=== PATIENT | female | born 1975 | race Caucasian/White ===

== ENCOUNTER 2019-08-29 08:20 | Emergency (ER) | payer OTHER ==
[2019-08-29 08:30] VITALS: BP 165/95; PULSE 72; TEMP 98.7; BMI 25.6
--- NOTE | 2019-08-29 08:59 | PDOC ---
History of Present Illness - General Chief Complaint: Blood Pressure Problem Stated Complaint: HYPERTENSION Time Seen by Provider: 08/29/19 08:36 History Source: Patient Past History - Past Medical History Allergies/Adverse Reactions: Allergies Allergy/AdvReac Type Severity Reaction Status Date / Time No Known Allergies Allergy Verified 07/14/12 09:07 Home Medications: Ambulatory Orders Aspirin 81 mg PO DAILY 08/29/19 Folic Acid 1 mg PO DAILY 08/29/19 Leflunomide 0 mg PO DAILY 08/29/19 Losartan Potassium [Cozaar -] 50 mg PO DAILY 08/29/19 Methotrexate [Mexate -] 15 mg PO Q7D 08/29/19 Omeprazole 40 mg PO DAILY 08/29/19 Cancer: Yes COPD: No HTN: Yes Other medical history: LUPUS, HIV - Surgical History GI Surgery: No - Immunization History Immunization Up to Date: Yes - Psycho Social/Smoking Cessation Hx Smoking Status: No Smoking History: Never smoked Have you smoked in the past 12 months: No Number of Cigarettes Smoked Daily: 0 Information on smoking cessation initiated: No Hx Alcohol Use: No Drug/Substance Use Hx: No Review of Systems - Review of Systems HEENTM: No: Blurred Vision Respiratory: No: Shortness of Breath Cardiac (ROS): No: Chest Pain, Lightheadedness, Palpitations Neurological: No: Headache, Numbness, Tingling, Weakness, Dizziness *Physical Exam - Vital Signs Last Vital Signs Temp Pulse Resp BP Pulse Ox 98.7 F 72 16 165/95 96 08/29/19 08:26 08/29/19 08:26 08/29/19 08:26 08/29/19 08:26 08/29/19 08:26 - Physical Exam General Appearance: Yes: Appropriately Dressed. No: Apparent Distress HEENT: positive: Normal Voice Neck: positive: Supple Respiratory/Chest: positive: Lungs Clear, Normal Breath Sounds. negative: Respiratory Distress Cardiovascular: positive: Regular Rate, S1, S2 Integumentary: positive: Dry, Warm Neurologic: positive: heavy cleaner II-XII NML intact, Fully Oriented, Alert, Normal Mood/ Affect, Motor Strength 5/5 Medical Decision Making - Medical Decision Making 08/29/19 08:55 44-year-old female, history of HIV and hypertension here over concern that her blood pressure was elevated at home. States this a.m. her blood pressure was 175/100. Patient states she recently was started on losartan. Was on lisinopril before that but her blood pressure was still elevated. Patient denies any symptoms at this time see exam Elevated BP Asymptomatic BP 165/95, exam wnl otherwise No emergent intervention needed Pt to f/u with PMD for further management of her BP Reasons to return to ER discussed with patient Discharge - Discharge Information Problems reviewed: Yes Clinical Impression/Diagnosis: Elevated blood pressure reading Condition: Good Disposition: HOME - Follow up/Referral - Patient Discharge Instructions Patient Printed Discharge Instructions: DI for High Blood Pressure, How to Monitor Your Blood Pressure at Home Additional Instructions: Return to the ER for any worsening of symptoms as discussed, otherwise please follow-up with your PMD next week for further management of your high blood pressure - Post Discharge Activity
== END 2019-08-29 09:04 | disposition home or self-care (01) ==
LOC: JER 08:20
DX: I10 Essential (primary) hypertension (principal); Z87.39 Personal history of other diseases of the musculoskeletal system and connective tissue; Z21 Asymptomatic human immunodeficiency virus [HIV] infection status; Z79.82 Long term (current) use of aspirin
CPT/HCPCS: 99281-25